=== PATIENT | male | born 1940 | race Caucasian/White ===

== ENCOUNTER 2017-05-31 07:30 | Inpatient (IN) ==
[2017-05-27 12:10] LABS: Appearance,Urine CLEAR; Bilirubin,Urine NEG (NEG); Color,Urine YELLOW; Glucose,Urine (UA) NEGATIVE (NEG); Leukocyte Esterase,Urine NEG /uL (NEG); Nitrate,Urine NEG (NEG); Protein,Urine NEG (NEG); Specific Gravity,Urine 1.017 (1.000-1.035); Urine Blood NEG mg/dL (<0.03); Urobilinogen,Urine NEG (NEG)
[2017-05-27 13:16] LABS: Basophils # (Auto) 0.1 K/mcL (0.0-0.3); Basophils % (Auto) 0.7 % (0.0-2.0); Eosinophils # (Auto) 0.3 K/mcL (0.0-0.7); Eosinophils % (Auto) 3.6 % (0.0-7.0); Granulocytes % (Auto) 79.5 % (38.0-78.0); Lymphocytes # (Auto) 0.9 K/mcL (1.5-4.8); Lymphocytes % (Auto) 9.7 % (15.5-49.0); Mean Cell Volume 98.3 fL (80.0-100.0); Mean Corpuscular HGB Conc 32.9 g/dL (31.0-36.0); Mean Corpuscular Hemoglobin 32.4 pg (26.0-34.0); Monocytes # (Auto) 0.6 K/mcL (0.1-0.9); Monocytes % (Auto) 6.5 % (1.0-12.0); Platelet Count 273 K/mcL (140-440); RBC 4.45 M/mcL (4.50-5.90); Red Cell Distribution Width 14.8 % (11.5-14.5)
[2017-05-27 13:58] LABS: Blood Urea Nitrogen 29 mg/dl (8-23)
[~2017-05-31 07:30] MED LIST: ACETAMINOPHEN 500 MG TABLET PO SCH; CELECOXIB 200 MG CAPSULE PO SCH; GABAPENTIN 300 MG CAPSULE PO SCH; ceFAZolin 1 GM VIAL IV SCH; oxyCODONE 10 MG TAB.ER.12H PO SCH
[2017-05-31] MEDS ORDERED: ROPIVACAINE HCL/PF 30 ML VIAL IJ ONE (11:25)
[2017-05-31] MEDS ORDERED: SUCCINYLCHOLINE 20 MG/ML ML IV ONE (11:25)
[2017-05-31] MEDS ORDERED: MIDAZOLAM 5 MG/5 ML VIAL IV ONE (11:25)
[2017-05-31] MEDS ORDERED: TRANEXAMIC ACID 1,000 MG/10 ML VIAL IV ONE (11:25)
[2017-05-31] MEDS ORDERED: ePHEDrine 50 MG/ML AMPUL IV ONE (11:25)
[2017-05-31] MEDS ORDERED: LIDOCAINE HCL/PF 100 MG/5 ML SYRINGE IV ONE (11:25)
[2017-05-31] MEDS ORDERED: fentaNYL 250 MCG/5 ML VIAL IV ONE (11:25)
[2017-05-31] MEDS ORDERED: DEXAMETHASONE 10 MG/ML VIAL IV ONE (11:25)
[2017-05-31] MEDS ORDERED: PROPOFOL 200 MG/20 ML VIAL IV ONE (11:25)
[2017-05-31] MEDS ORDERED: ONDANSETRON 4 MG/2 ML VIAL IV ONE (11:25)
[2017-05-31] MEDS ORDERED: GENTAMICIN SULFATE 800 MG/20 ML VIAL IR ONE (12:21)
[2017-05-31] MEDS ORDERED: LACTATED RINGERS 250 ML IV PRN (12:40)
[2017-05-31] MEDS ORDERED: IPRATROPIUM/ALBUTEROL 3 ML AMPUL.NEB NEB PRN (12:40)
[2017-05-31] MEDS ORDERED: BENZOCAINE/MENTHOL 1 LOZENGE PO PRN ×2 (12:40→12:47)
[2017-05-31] MEDS ORDERED: NALOXONE HCL 0.4 MG/ML VIAL IV PRN (12:40)
[2017-05-31] MEDS ORDERED: METHOCARBAMOL 1,000 MG/10 ML VIAL IV PRN (12:40)
[2017-05-31] MEDS ORDERED: fentaNYL 100 MCG/2 ML VIAL IV PRN (12:40)
[2017-05-31] MEDS ORDERED: ONDANSETRON 4 MG/2 ML VIAL IV PRN ×2 (12:40→12:47)
[2017-05-31] MEDS ORDERED: diphenhydrAMINE 50 MG/ML VIAL IV PRN (12:40)
[2017-05-31] MEDS ORDERED: HYDROmorphone 2 MG/ML SYRINGE IV PRN ×2 (12:40→12:47)
[2017-05-31] MEDS ORDERED: MEPERIDINE 25 MG/ML SYRINGE IV PRN (12:40)
[2017-05-31] MEDS ORDERED: FLUMAZENIL 0.1 MG/ML ML IV PRN (12:40)
[2017-05-31] MEDS ORDERED: LACTATED RINGERS 1,000 ML IV SCH (12:45)
[2017-05-31] MEDS ORDERED: POLYETHYLENE GLYCOL 3350 17 GM PACKET PO PRN (12:47)
[2017-05-31] MEDS ORDERED: HYDROcodone/APAP 10/325MG TABLET PO PRN (12:47)
[2017-05-31] MEDS ORDERED: ACETAMINOPHEN 325 MG TABLET PO PRN (12:47)
[2017-05-31] MEDS ORDERED: KETOROLAC 15 MG/ML VIAL IV PRN (12:47)
[2017-05-31] MEDS ORDERED: BISACODYL 10 MG SUPP.RECT PR PRN (12:47)
[2017-05-31] MEDS ORDERED: FLEETS ADULT ENEMA PR PRN (12:47)
[2017-05-31] MEDS ORDERED: MAGNESIUM HYDROXIDE 30 ML ORAL.SUSP PO PRN (12:47)
[2017-05-31] MEDS ORDERED: TRANEXAMIC ACID 1,000 MG/10 ML VIAL IV SCH (12:47)
--- NOTE | 2017-05-31 12:47 | Brief Operative Note ---
Date of procedure: 05/31/17 Pre-op diagnosis: left unstable reverse tsa Post-op diagnosis: same Procedure: left reverse tsa with both components revised Grafts/Implants: Yes Anesthesia: GETA Complications: none Complications Description: 05/31/17 12:46 none Surgeon: Ryan Johnson Social Security Benefits Interviewer: Chuy Chavez
--- NOTE | 2017-05-31 14:23 | XRay Report ---
HISTORY: Reason for Exam:Post-Op Total Shoulder FINDINGS: There is a well-positioned reverse total shoulder prosthesis. Distal end of the clavicle has been resected and there is widening between the clavicle and acromion. No fracture is present. IMPRESSION: Well-positioned left shoulder prosthesis Interpreted and Authenticated by: Pantera Styles 05/31/17
[2017-05-31] MEDS: 0.45 % SODIUM CHLORIDE 1,000 ML IV SCH (14:33)
[2017-05-31] MEDS: 0.9 % SODIUM CHLORIDE 10 ML SYRINGE IV SCH ×2 (14:33→21:36)
[2017-05-31] MEDS: GABAPENTIN 300 MG CAPSULE PO SCH (19:19)
[2017-05-31] MEDS: ceFAZolin 1 GM VIAL IV SCH (19:19)
[2017-05-31] MEDS: DOCUSATE SODIUM 100 MG CAPSULE PO SCH (19:19)
[2017-05-31] MEDS: buPROPion 150 MG TAB.SR.12H PO SCH (19:29)
[2017-05-31] MEDS ORDERED: SIMVASTATIN 40 MG TABLET PO SCH (21:00)
[2017-05-31] MEDS ORDERED: QUININE 300 MG PO SCH (21:00)
[2017-05-31] MEDS ORDERED: TEMAZEPAM 15 MG CAPSULE PO PRN (21:00)
[2017-05-31] MEDS ORDERED: SENNOSIDES 1 TABLET PO SCH (21:00)
[2017-05-31] MEDS ORDERED: ESZOPICLONE PO SCH (21:00)
[2017-05-31] MEDS: oxyCODONE HCL 5 MG TABLET PO PRN (23:20)
[2017-06-01] MEDS: 0.45 % SODIUM CHLORIDE 1,000 ML IV SCH ×2 (00:53→13:23)
[2017-06-01] MEDS: ceFAZolin 1 GM VIAL IV SCH (03:08)
[2017-06-01] MEDS: 0.9 % SODIUM CHLORIDE 10 ML SYRINGE IV SCH (06:09)
[2017-06-01] MEDS: oxyCODONE HCL 5 MG TABLET PO PRN (06:45)
[2017-06-01] MEDS: DOCUSATE SODIUM 100 MG CAPSULE PO SCH (08:42)
[2017-06-01] MEDS: GABAPENTIN 300 MG CAPSULE PO SCH (08:43)
[2017-06-01] MEDS: buPROPion 150 MG TAB.SR.12H PO SCH (08:43)
[2017-06-01] MEDS ORDERED: TAMSULOSIN 0.4 MG CAPSULE PO SCH (09:00)
[2017-06-01] MEDS ORDERED: CALCIUM W/VIT D3 500 MG TABLET PO SCH (09:00)
[2017-06-01] MEDS ORDERED: COENZYME Q10 200 MG PO SCH (09:00)
[2017-06-01] MEDS ORDERED: ALLOPURINOL 300 MG TABLET PO SCH (09:00)
[2017-06-01] MEDS ORDERED: MULTIVIT,THER IRON,CA,FA & MIN 1 TABLET PO SCH (09:00)
[2017-06-01] MEDS ORDERED: amLODIPine 5 MG TABLET PO SCH (09:00)
--- NOTE | 2017-06-01 10:22 | Orthopedic Progress Note ---
Subjective Patient information: Note initiated : 06/01/17 at 10:21 am Service Date, if different from initiated Date: [] Patient: Tim Garrett 76 y/o M admitted on 05/31/17 for Left Reverse Total Shoulder Arthroplasty Revision. Chief Complaint: [no cp or sob and pain is only a 2] Objective Vital signs: Vital Signs Temp Pulse Resp BP BP Pulse Ox 06/01/17 07:29 97.7 F 18 138/78 93 06/01/17 07:00 93 06/01/17 04:43 97.7 F 69 16 115/66 93 06/01/17 02:59 91 06/01/17 00:00 97.4 F 69 16 118/70 92 05/31/17 20:00 91 05/31/17 19:24 97.0 F 72 16 130/76 91 05/31/17 17:00 125/75 90 05/31/17 16:29 121/78 91 05/31/17 16:00 125/75 93 05/31/17 15:30 123/78 91 05/31/17 15:00 121/71 91 05/31/17 14:30 127/77 91 05/31/17 14:15 96.5 F L 116/70 90 05/31/17 14:11 98 05/31/17 13:56 97.4 F 60 20 110/65 92 05/31/17 13:43 97.1 F 60 22 111/72 96 05/31/17 13:38 59 L 20 107/61 93 05/31/17 13:33 58 L 13 105/70 90 05/31/17 13:28 60 22 112/86 91 05/31/17 13:23 59 L 22 121/79 91 05/31/17 13:18 57 L 21 121/77 92 05/31/17 13:13 96.9 F L 62 12 107/69 94 Intake and Output 05/31/17 06/01/17 06/01/17 21:59 05:59 13:59 Intake Total 240 / 240 1837 / 1837 240 / 240 Output Total 525 / 525 300 / 300 650 / 650 Balance -285 / -285 1537 / 1537 -410 / -410 Intake: IV 1387 / 1387 Sodium Chloride 0.45% 1,000 ml 1387 / 1387 @ 100 mls/hr IV .Q10H BRODY Rx#: [id number] Oral 240 / 240 450 / 450 240 / 240 Output: Void Amount 525 / 525 300 / 300 650 / 650 Other: Meal Dinner Breakfast Percent of Meal Consumed 100% 100% Feeding Ability Independent # Voids 1 Weight 174 lb Intake & Output: Intake & Output 05/31/17 06/01/17 06/01/17 21:59 05:59 13:59 Intake Total 240 / 240 1837 / 1837 240 / 240 Output Total 525 / 525 300 / 300 650 / 650 Balance -285 / -285 1537 / 1537 -410 / -410 Weight 174 lb Intake: IV 1387 / 1387 Sodium Chloride 0.45% 1,000 ml 1387 / 1387 @ 100 mls/hr IV .Q10H BRODY Rx#: [id number] Oral 240 / 240 450 / 450 240 / 240 Output: Void Amount 525 / 525 300 / 300 650 / 650 Other: Meal Dinner Breakfast Percent of Meal Consumed 100% 100% Feeding Ability Independent # Voids 1 Incision: Yes healing Incision clean and dry: Yes Dressing: Yes clean Weight bearing status: partial Neurological exam IM: Yes oriented X3, Yes neurovascular intact Extremities exam IM: Yes Foot pink and warm (dc home), Yes neurovascular intact - Labs CBC & BMP: 05/27/17 10:53 05/27/17 10:53 Labs: Orthopedic Labs 05/27/17 10:53 PT 14.3 INR 1.1 APTT 34 05/27/17 10:53 Hgb 14.4 Hct 43.8
--- NOTE | 2017-06-01 10:26 | Discharge Summary ---
Ortho Discharge - TSA - Patient Instructions Diet: Regular Diet Activity: activity as tolerated, weight bearing as tolerated Total Shoulder Protocol: Leave immobilizer in place except for bathing and ROM. Abduction pillow. Continue to wear sling until seen by physician. Codman Pendulum : These exercises use momentum produced by your body to move your shoulder joint. Bend your knees and shift your weight to your front leg, then back, allowing your arm to swing in the same directions. Using the same technique, alternately shift your weight between your right and left legs, allowing your arm to swing from side to side. These exercises are also performed in counterclockwise and clockwise circular motions. Typically these exercises are performed several times per day, for a set number repetitions or minutes, such as 20 times in a row or 5 minutes at a time. Dressing Care: [place] Ag - leave on for 5 days Patient Education: Shoulder Arthroplasty (DC) Additional Instructions: Discharge Instructions: Do the exercises at home that physical therapy gave you. You are scheduled to start physical therapy at [facility] on Jun.03 at 1:30 pm, please arrive 15 minutes early for paperwork. Take your prescription, photo ID, insurance cards, and current medication list with you to your first physical therapy appointment. Take your prescription to leaf size picker any medication or equipment (such as walker, crutches, toilet riser or C.P.M.) Wear comfortable clothing for your physical therapy. No weight bearing with left arm/hand. Keep arm in the immobilizer except for showering and exercise. You have Dermabond (a dressing with a mesh-like appearance), leave open to air. Do not remove this dressing. You may start showering on post op day #2. The Dermabond dressing can get wet, do not scrub dressing. Pat dry. To avoid constipation while taking any narcotic pain medication, take an over the counter stool softener/laxative. Use ice packs as directed, on for 20 minutes at a time throughout the day. This and elevation will help with pain and swelling. Call your physician for fevers above 100.5 or pain not controlled by medication. Your prescriptions are with your discharge information. Some medications were electronically transmitted to your pharmacy of choice. - Follow Up Plan Follow Up Appointments: Ryan Johnson MD [Physician] - 06/13/17 10:40 am Disposition: Home, Self-Care Prognosis: Good Rehab Potential: Good I certify that the patient requires SNF services: No Overall status at discharge: patient is progressing back to baseline - Orders For Discharge Additional Discharge Orders: Physical Therapy at Discharge - TSA Location: Determined By Patient Brace/Splint Location: Determined By Patient
[2017-06-03] MEDS ORDERED: ALENDRONATE SODIUM 70 MG TABLET PO SCH (07:30)
--- NOTE | 2017-06-07 15:27 | Operative Note ---
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 PROCEDURE: Left total shoulder revision of both the glenoid and humeral components. SURGEON: Ryan Johnson M.D. DROP CREW LABORER: Chuy Chavez PA-C. ANESTHESIA: General LMA anesthesia. The patient did have a shoulder block before the case. ESTIMATED BLOOD LOSS: About 50 mL. COMPLICATIONS: None. DESCRIPTION OF PROCEDURE: The patient was brought to the operating room and put to sleep with general LMA anesthesia after having a block on the left shoulder. The patient then had the left arm sterilely prepped and draped in the usual sterile fashion once we confirmed the operative site with a time out, both with initials on the arm, x-rays and a consent form. Once we confirmed the left arm was the appropriate site, we then performed a sterile prep and draping of the left upper extremity. We then made the incision through a new scar anteriorly. He had an implant placed superiorly which was a reverse total shoulder. We proceeded with an anterior approach with a new incision, identified the deltopectoral interval. The cephalic vein was retracted laterally. I exposed the joint anteriorly and released the subscap, dislocated the humeral component after performing a capsulotomy. Identified the axillary nerve to make sure it was safe and then removed the humeral cap. With this, we then subluxed the head posteriorly, removed the glenosphere. These were Tornier components. I removed the glenosphere using a screwdriver and then this was tapped off. We then stressed the baseplate to make sure it was intact. The screws were tightened. We irrigated thoroughly and then placed a new cap. This was a larger size, a 40 mm with a 10 degree tilt for offset and eccentricity a 2 mm. Once this was tapped into place and the screw was locked, we performed a 360-degree capsulotomy around the glenoid. We then prepared the humeral side. The humeral side was prepared. We trialed a standard thickness. We went up two sizes with a 12 mm. This seemed to be the appropriate tension with a 40 mm liner. This seemed to fit very well. This was stable throughout the arc and did not impinge. We implanted a 40 mm poly liner on the humeral side with a +12 thickness which was locked into place. We then reduced the shoulder. Tension was excellent. We then irrigated thoroughly and repaired the deltopectoral approach with 0 Vicryl and closed the skin with 2-0 Vicryl and adhesive closure. The patient was fitted and given a Donjoy sling. This seemed to fit very well. There was no complication. NICOLAS:sarah Job ID: [id number] Doc ID: [id number] Ryan Johnson MD
== END 2017-06-01 12:15 | disposition home or self-care (01) | DRG 483 ==
LOC: MEDSUR 07:30
PROVIDERS: ADMIT Orthopaedic Surgery; ATTEND Orthopaedic Surgery